=== PATIENT | male | born 1980 | race Hispanic/Latino ===

== ENCOUNTER 2020-12-06 17:59 | Emergency (ER) | payer OTHER ==
[~2020-12-06] VITALS: Ht 180.3 cm; Wt 90.7 kg
[2020-12-06] MEDS ORDERED: HYDROCODON-ACE1 EA10 PO (20:27)
== END 2020-12-06 20:56 | disposition home or self-care (01) ==
LOC: ED 17:59
DX: R50.9 Fever, unspecified (principal); R53.1 Weakness; Z20.822 Contact with and (suspected) exposure to COVID-19
CPT/HCPCS: 71045; 80053; 81001; 82553; 83605; 85025; 99283-25; J7030; U0003

== ENCOUNTER 2021-12-05 17:28 | Emergency (ER) | payer OTHER ==
[~2021-12-05] VITALS: Ht 180.3 cm; Wt 90.7 kg
[~2021-12-05 17:28] MED LIST: HYDROCODON-ACE1 EA10 PO
[2021-12-05] MEDS ORDERED: HYDROCODON-ACE1 EA10 PO (18:23)
== END 2021-12-05 18:35 | disposition home or self-care (01) ==
LOC: ED 17:28
DX: S42.021A Displaced fracture of shaft of right clavicle, initial encounter for closed fracture (principal); V80.010A Animal-rider injured by fall from or being thrown from horse in noncollision accident, initial encounter; M79.604 Pain in right leg
CPT/HCPCS: 71045; 73030; 73590; 99283-25; A9270

== ENCOUNTER 2022-03-08 17:29 | Emergency (ER) | payer OTHER ==
[~2022-03-08] VITALS: Ht 180.3 cm; Wt 90.7 kg
== END 2022-03-08 21:37 | disposition home or self-care (01) ==
LOC: ED 17:29
DX: N50.812 Left testicular pain (principal)
CPT/HCPCS: 36415; 74177; 76870; 80048; 81001; 85025; 87491; 99284-25; Q9967